=== PATIENT | male | born 1955 | race Caucasian/White ===

== ENCOUNTER 2022-03-23 11:59 | Observation (INO) ==
[2022-03-23 13:30] LABS: Hematocrit 24.1 % (37.5-50.1); Hemoglobin 6.3 g/dL (12.9-16.9); Mean Corpuscular HGB Conc 26.1 g/dL (31.6-35.5); Mean Corpuscular Hemoglobin 17.9 pg (28.0-33.3); Mean Corpuscular Volume 68.5 fL (83.0-100.0); Mean Platelet Volume 10.2 fL (9.4-12.4); Platelet Count 194 K/mcL (140-400); Red Blood Count 3.52 M/mcL (4.19-5.50); Red Cell Distribution Width 20.7 % (11.5-14.5); White Blood Count 9.1 K/mcL (4.3-11.1)
[2022-03-23 13:50] LABS: Calcium 8.4 mg/dL (8.6-10.3); Potassium 3.9 mEq/L (3.5-5.1)
[2022-03-23] MEDS ORDERED: MOM Conc 10 ML UD.LIQ PO PRN (14:39)
[2022-03-23] MEDS ORDERED: Naloxone 0.4 MG/ML INJ IVP PRN (14:39)
[2022-03-23] MEDS ORDERED: Mag Hydrox/Al Hydrox/Simeth 30 ML UDC PO PRN (14:39)
[2022-03-23] MEDS ORDERED: Melatonin 3 MG TABLET PO PRN (14:39)
[2022-03-23] MEDS ORDERED: Ondansetron ODT 4 MG TAB.RAPDIS SL PRN (14:39)
[2022-03-23] MEDS ORDERED: Dextrose Gel 15 GM/37.5 ML TUBE PO PRN ×2 (14:41)
[2022-03-23] MEDS ORDERED: D5% in Water 1,000 ML IVC PRN (14:41)
[2022-03-23] MEDS ORDERED: *HR* Dextrose 50 % in Water (Syg) 50 ML SYRINGE IVP PRN (14:41)
[2022-03-23] MEDS ORDERED: 0.9 % Sodium Chloride 250 ML ONE ×2 (15:10→18:22)
[2022-03-23 15:54] LABS: Estimated Average Glucose 186 mg/dl; Hemoglobin A1C 8.1 %
[2022-03-23] MEDS: Insulin LISPRO 300 UNITS/3 ML VIAL SUBQ SCH (18:10)
[2022-03-23] MEDS: Pantoprazole 40 MG VIAL IVP SCH (18:21)
[2022-03-23] MEDS ORDERED: Insulin LISPRO 300 UNITS/3 ML VIAL SUBQ SCH (21:00)
[2022-03-23] MEDS: 0.9 % Sodium Chloride 1,000 ML IVC SCH (22:05)
[2022-03-24 03:45] LABS: Albumin 3.8 g/dL (3.5-5.7); Albumin/Globulin Ratio 1.4 (1.1-2.2); Bilirubin,Total 1.5 mg/dL (0.3-1.0); Calcium 8.6 mg/dL (8.6-10.3); Globulin 2.8 g/dL (2.4-3.5); Potassium 3.6 mEq/L (3.5-5.1); Total Protein 6.6 g/dL (6.4-8.9)
[2022-03-24] MEDS: Pantoprazole 40 MG VIAL IVP SCH (05:47)
[2022-03-24] MEDS ORDERED: Simethicone 40 MG/0.6 ML MLS IR ONE (09:01)
[2022-03-24] MEDS: Insulin LISPRO 300 UNITS/3 ML VIAL SUBQ SCH ×2 (09:40→13:08)
[2022-03-24] MEDS ORDERED: Lidocaine -MPF 2% 5 ML VIAL ONE (09:56)
[2022-03-24] MEDS ORDERED: Lidocaine HCL 4 ML Topical Solution (Laryng-O-Jet Kit Sterile Pak) TP ONE (09:56)
[2022-03-24 10:15] LABS: Eosinophils % 3.3 %; Immature Granulocytes % 0.3 % (0-4); Red Cell Distribution Width 22.5 % (11.5-14.5)
[2022-03-24 10:16] LABS: Basophils # 0.1 K/mcL (0.0-0.2); Basophils % 0.6 %; Eosinophils # 0.3 K/mcL (0.0-0.6); Hematocrit 32.2 % (37.5-50.1); Hemoglobin 9.3 g/dL (12.9-16.9); Lymphocytes # 1.3 K/mcL (0.6-4.6); Lymphocytes % 14.3 %; Mean Corpuscular HGB Conc 28.9 g/dL (31.6-35.5); Mean Corpuscular Hemoglobin 19.9 pg (28.0-33.3); Mean Corpuscular Volume 68.8 fL (83.0-100.0); Mean Platelet Volume 9.6 fL (9.4-12.4); Monocytes # 0.6 K/mcL (0.0-1.3); Monocytes % 6.2 %; Platelet Count 302 K/mcL (140-400); Red Blood Count 4.68 M/mcL (4.19-5.50); Segmented Neutrophils % 75.3 %; White Blood Count 9.1 K/mcL (4.3-11.1)
[2022-03-24 10:23] LABS: Neutrophils # 6.9 K/mcL (1.6-8.9)
[2022-03-24 11:30] VITALS: BP 153/67; PULSE 81; TEMP 98; O2SAT 94
[2022-03-24 11:49] LABS: Anisocytosis 1+ (Not Present); Hypochromasia Present (Not Present)
[2022-03-24] MEDS: 0.9 % Sodium Chloride 1,000 ML IVC SCH (13:09)
[2022-03-25 15:59] LABS: % Iron Saturation 81 % (20-55); Iron 356 mcg/dL (65-175); Transferrin 313 mg/dL (203-362)
== END 2022-03-24 14:41 | disposition home or self-care (01) ==
LOC: EMEROOARM 11:59 → 3ANU 11:59 → SUATTDRO 14:39 → 3ANU 15:45
PROVIDERS: ADMIT Internal Medicine; ATTEND Registered Nurse
PROC: ENDOEBX (2022-03-24 13:45)